=== PATIENT | female | born 1975 | race Caucasian/White ===

== ENCOUNTER → 2016-11-01 | Outpatient (CLI) | payer OTHER ==
[~2016-11-01] MED LIST: VICODIN ES 7501 TAB PO; ZITHROMAX Z PA250 MG PO
== END | disposition home or self-care (01) ==
LOC: MRI 14:45
DX: H93.A2 Pulsatile tinnitus, left ear (principal)

== ENCOUNTER → 2020-03-18 | Outpatient (CLI) | payer OTHER | END | disposition home or self-care (01) | LOC: RAD 11:15 | PROVIDERS: ATTEND Family Medicine | DX: M53.3 Sacrococcygeal disorders, not elsewhere classified (principal) ==

== ENCOUNTER → 2020-05-07 | Outpatient (CLI) | payer OTHER | END | disposition home or self-care (01) | LOC: COVID19 10:01 | PROVIDERS: ATTEND Family Medicine | DX: R06.02 Shortness of breath (principal); Z20.828 Contact with and (suspected) exposure to other viral communicable diseases ==

== ENCOUNTER → 2020-05-20 | Outpatient (CLI) | payer OTHER | END | disposition home or self-care (01) | LOC: COVID19 09:39 | PROVIDERS: ATTEND Family Medicine | DX: U07.1 COVID-19 (principal) ==

== ENCOUNTER → 2020-05-22 | Outpatient (CLI) | payer OTHER | END | disposition home or self-care (01) | LOC: RAD 16:39 | PROVIDERS: ATTEND Family Medicine | DX: U07.1 COVID-19 (principal); R07.9 Chest pain, unspecified ==

== ENCOUNTER → 2021-05-28 | Outpatient (CLI) | payer OTHER ==
[2021-05-28 15:10] LABS: HEMATOCRIT 39.6 % (37.0-47.0); MEAN CELL VOLUME 90.2 fl (81.0-99.0); MEAN CORPUSCULAR HGB 29.8 pg (27.0-31.0); MEAN CORPUSCULAR HGB CONC 33.1 g/dl (33.0-37.0); MEAN PLATELET VOLUME 11.1 fl (9.6-12.3); RED BLOOD COUNT 4.39 10*6/uL (4.10-5.10); RED CELL DISTRI WIDTH 11.6 % (0-14.5); WHITE BLOOD COUNT 5.9 10*3/uL (4.8-10.8)
[2021-05-28 15:28] LABS: ALBUMIN 3.8 gm/dl (3.1-4.5); ALKALINE PHOSPHATASE 45 U/L (45-117); BUN 12 mg/dl (7-24); CHLORIDE 110 mmol/L (98-107); CHOLESTEROL 168 mg/dL (<200); LDL CHOLESTEROL 101 mg/dL (9-159); POTASSIUM 4.2 mmol/L (3.5-5.1); SGOT/AST 10 IU/L (3-35); SGPT/ALT 21 U/L (12-78); SODIUM 141 mmol/L (136-145); TOTAL PROTEIN 7.3 gm/dL (6.4-8.2); TRIGLYCERIDES 107 mg/dl (<150)
== END | disposition home or self-care (01) ==
LOC: LAB 14:28 → RAD 14:28
PROVIDERS: ATTEND Family Medicine
DX: Z13.220 Encounter for screening for lipoid disorders (principal); J31.0 Chronic rhinitis; R53.83 Other fatigue; F41.1 Generalized anxiety disorder; E74.00 Glycogen storage disease, unspecified; S62.607A Fracture of unspecified phalanx of left little finger, initial encounter for closed fracture; X58.XXXA Exposure to other specified factors, initial encounter; Y93.89 Activity, other specified; Y92.89 Other specified places as the place of occurrence of the external cause; Y99.8 Other external cause status

== ENCOUNTER 2021-09-24 12:40 | Emergency (ER) | payer OTHER ==
[~2021-09-24] VITALS: Ht 170.1 cm; Wt 70.3 kg
[2021-09-24] MEDS ORDERED: NAPROXEN250 MG PO (14:59)
[2021-09-24] MEDS ORDERED: CEPHALEXIN500 M1 PO (14:59)
[2021-09-24] MEDS ORDERED: TYLENOL325 M1 PO (14:59)
== END 2021-09-24 15:27 | disposition home or self-care (01) ==
LOC: ED 12:40
DX: S62.522B Displaced fracture of distal phalanx of left thumb, initial encounter for open fracture (principal); Z91.040 Latex allergy status; W22.8XXA Striking against or struck by other objects, initial encounter; Y93.89 Activity, other specified; Y92.89 Other specified places as the place of occurrence of the external cause; Y99.8 Other external cause status

== ENCOUNTER → 2023-10-28 | Emergency (ER) | payer OTHER ==
[~2023-10-28] VITALS: Ht 170.1 cm; Wt 77.1 kg
[~2023-10-28] MED LIST changes: +CEPHALEXIN500 M1 PO; +CIPRO500 MG PO; +Ceftriaxone Sodium 1 GM/10 ML SYR IV ONE; +Ciprofloxacin Hydrochloride 500 MG TAB PO ONE; +MORPHINE Sulfate 2 MG/ML SYR IV ONE; +NAPROXEN250 MG PO; +Ondansetron Hydrochloride 4 MG/2 ML VIAL IV ONE; +POTASSIUM CHLORIDE 20 MEQ TAB PO ONE; +SODIUM CHLORIDE 0.9% 1,000 ML IV ONE; +TYLENOL325 M1 PO
[2023-10-28 16:13] LABS: BILIRUBIN Negative (Negative); BLOOD 2+ (Negative); CLARITY Turbid (Clear); COLOR Yellow (Yellow); GLUCOSE Negative (Negative); KETONE 4+ (Negative); LEUKO ESTERASE 3+ (Negative); NITRITE Negative (Negative); SPECIFIC GRAVITY 1.025 (1.001-1.030)
[2023-10-28 16:21] LABS: EPITHELIAL CELLS TNTC; WBC TNTC wbc/hpf (0-5)
[2023-10-28 16:23] LABS: BASO % 0.1 % (0.0-1.0); EOS % 0.1 % (1.0-4.0); HEMATOCRIT 45.5 % (37.0-47.0); LYMPH # 0.6 10*3/uL (1.3-4.4); LYMPH % 3.8 % (27.0-41.0); MEAN CELL VOLUME 91.7 fl (81.0-99.0); MEAN CORPUSCULAR HGB 30.4 pg (27.0-31.0); MEAN CORPUSCULAR HGB CONC 33.2 g/dl (33.0-37.0); MONO # 1.3 10*3/uL (0.1-1.0); MONO % 8.9 % (3.0-9.0); NEUT # 12.9 10*3/uL (2.3-7.9); NEUT % 86.8 % (47.0-73.0); PLATELET COUNT AUTOMATED 227 10*3/uL (130-400); RED BLOOD COUNT 4.96 10*6/uL (4.10-5.10); RED CELL DISTRI WIDTH 11.9 % (0-14.5); WHITE BLOOD COUNT 14.9 10*3/uL (4.8-10.8)
[2023-10-28 16:46] LABS: ALKALINE PHOSPHATASE 67 U/L (46-116); BUN 8 mg/dl (9-23); CHLORIDE 103 mmol/L (98-107); LIPASE 40 U/L (12-53); POTASSIUM 3.2 mmol/L (3.4-5.1); SGPT/ALT 17 U/L (5-49)
== END ==
LOC: ED 15:50
PROVIDERS: Physician Assistant Medical
DX: N12 Tubulo-interstitial nephritis, not specified as acute or chronic (principal)